=== PATIENT | male | born 1955 | race Caucasian/White ===

== ENCOUNTER 2017-04-29 13:15 | Inpatient (IN) | payer OTHER ==
--- NOTE | 2017-04-29 13:07 | EDPHY ---
H & P HPI/ROS: CHIEF COMPLAINT: AMS, hyperglycemia. HISTORY OF PRESENT ILLNESS: The patient is a 62 year old male with a history of Type 1 diabetes and CVA who presents via EMS for hyperglycemia and AMS. Per his he felt well yesterday but vomited 4 times this morning at 0400. At 0700 he became somnolent and had a decreased level of responsiveness. Around 1300 he developed possible slurred speech. He has baseline left-sided deficits from a previous CVA. noticed slurred speech and there was questionable history that his pre-existing deficits for slightly worse. EMS was notified and measured his blood glucose levels over 600. He has been minimally responsive for EMS and is somnolent but arousable on arrival. He denies fever, chills, chest pain, or other complaints. Prior to arrival he has received 10 units subcutaneous NovoLog and 5 units IV. No fever, chills, chest pain, shortness of breath, palpitations, diarrhea, urinary complaints, headache, lightheadedness. He is oriented to place, family, and hometown. REVIEW OF SYSTEMS: Aside from elements discussed in the HPI, a comprehensive 10-point review of systems was reviewed and is negative. PAST MEDICAL HISTORY: CVA, type 1 diabetes, SOCIAL HISTORY: , at bedside, nonsmoker, no alcohol use. VITAL SIGNS: Reviewed by me GENERAL: Well-developed, well-nourished, ketotic-smelling. Clue small breathing. HEENT: Atraumatic. Eyes: Pupils are 3 mm and reactive. Extraocular movements are intact except for difficulty with right lateral gaze from the right eye. ( states preexisting.) No icterus, no injection. Mouth: Extremely dry mucous membranes. No erythema or lesions. Neck: supple with no adenopathy. LUNGS: Clear to auscultation bilaterally, no wheezes, rhonchi or rales. Kussmaul breathing. CARDIAC: Regular rate and rhythm, no rubs, murmurs or gallops. ABDOMEN: Soft, nontender, nondistended, bowel sounds normal. BACK: No CVA tenderness. EXTREMITIES: No trauma. No edema. Left lower extremity in a PFO splint NEURO: Lethargic but oriented. Decreased responsiveness, slow to respond to questioning. 4/5 motor strength in left upper extremity. 4/5 strength in left lower extremity, left hand pear picker 3/5, all per reported baseline. Cranial nerves 2-12 are intact. No facial droop noted by myself. SKIN: Warm and dry, no rash. PSYCHIATRIC: Normal mentation, no agitation. Portions of this note were transcribed by a medical record administrator. I personally performed a history, physical exam, medical decision making, and confirmed accuracy of information the transcribed note. Source: Family, EMS Exam Limitations: Clinical condition Constitutional: Initial Vital Signs Temperature (C) 36.9 C 04/29/17 13:21 Heart Rate 88 04/29/17 13:21 Respiratory Rate 22 H 04/29/17 13:21 Blood Pressure 109/61 04/29/17 13:21 O2 Sat (%) 98 04/29/17 13:21 O2 Delivery Mode Room Air Allergies/Adverse Reactions: No Allergies [NKDA] Allergy (Verified 04/29/17 15:22) Home Medications: Medication Instructions Recorded ALPRAZolam [Xanax 0.5 MG (*)] 0.5 mg PO HS 04/29/17 Aspirin [Aspirin 81mg (*)] 81 mg PO DAILY 04/29/17 Baclofen [Baclofen 10 mg (*)] 10 mg PO HS 04/29/17 Citalopram [CeleXA] 20 mg PO HS 04/29/17 Gabapentin [Neurontin 100 MG (*)] 100 mg PO HS 04/29/17 Hydrocodone/Acetaminophen [[place] 1 - 2 tab PO Q6H PRN 04/29/17 5/325 (*)] Insulin Pump, Patient Own 1 ea MISC AD 04/29/17 Labetalol HCl [Trandate 200 mg (*)] 200 mg PO BID 04/29/17 Levothyroxine [Synthroid 200 mcg 200 mcg PO DAILY06 04/29/17 (*)] Lisinopril [Zestril 40 mg (*)] 40 mg PO DAILY 04/29/17 Naproxen Sodium [Aleve 220 MG (*)] 220 mg PO DAILY PRN 04/29/17 Pramipexole Di-HCl [Mirapex 0.125 0.125 mg PO HS 04/29/17 mg (*)] Tamsulosin HCl [Flomax 0.4 MG (*)] 0.4 mg PO HS 07/13/17 amLODIPine BESYLATE [Norvasc 10 mg 5 mg PO DAILY 04/29/17 (*)] Medical Decision Making - Diagnostics EKG Interpretation: 12-LEAD EKG: Please see the full report in [facility]. My interpretation: Normal sinus rhythm with first degree AV block. Imaging Results: CT Head: Impression: 1. Encephalomalacia related to old infarct or hemorrhage posterior right thalamus and medial right temporal lobe. 2. No hemorrhage, mass effect, or definite acute peripheral infarct. 3. Moderate nonspecific hypodensities in the white matter of bilateral cerebral hemispheres right side greater than left. Differential diagnosis includes microvascular ischemic disease, post- infectious/post-inflammatory sequela, atypical demyelinating disease, or migraine-related sequela. Small white matter lacunar infarcts or posttraumatic volume loss may also have this appearance. Findings discussed with the medical office clerk with Mary Farfan MD at 14: 38 hour, 04/29/2017. Xray: Chest x-ray was obtained. I viewed the images myself on the PACS system. My interpretation of the images is: No acute disease. The radiology interpretation is: Impression: 1. No acute pulmonary disease. 2. Consider chest two views when the patient's medical condition permits. Dictated By: Brian Salvador Imaging: Discussed imaging studies w/ call center specialist Radiologist, I viewed and interpreted images myself ED Course/Re-evaluation: This 62-year-old male arrives via EMS with hyperglycemia and AMS. I met EMS on arrival and obtained a report from the box sorter. On exam I note left-sided neurological deficits which he and his report are baseline from his previous stroke. An IV was established and labs ordered. EKG ordered. I have ordered Head CT to rule out possible CVA. I think this patient is likely in DKA. ISTAT shows potassium of 6.6. 1gm IV Calcium gluconate administered along with 1L IV saline, and 10 units IV Humulin. 1441: Head CT results conveyed to me negative for acute processes by Dr. Velasquez, radiology. I reviewed the patient's laboratory studies. Potassium is 6.5, glucose >800, carbon dioxide <5. Plan for admission. 50meq IV Sodium Bicarbonate administered. 1450:Notified by nursing staff that the patient's blood pressure has trended downward. BNP is also noted to be elevated at 1600. On re-examination patient is slightly improved, not quite as somnolent as previously. Denies any chest pain or shortness of breath. Denies any palpitations or dizziness. Reports the vomit contains dark material. Rectal exam performed to evaluate for possible GI hemorrhage in the setting of hypotension. Brown stool on the glove. Occult testing was negative. I performed a rectal exam that showed small amount of brown stool. 1452: Consulted with Dr. Corley, hospitalist. Patient will be admitted to the ICU. Repeat i-STAT demonstrates a potassium of 4.8, hemoglobin and hematocrit are stable from previously, glucose is 683. Repeat bicarbonate is 6. Differential Diagnosis: After the history was obtained and physical exam performed, the following differential for the patient's altered mental status was considered included but was not limited to hyperglycemia, DKA,, electrolyte disturbances, intracranial hemorrhage, tumor, drug or alcohol intoxication, stroke, or TIA. Consult/Admit Bed Type: Dr. Corley, ICU Critical Care Time: Critical care time spent by me, Dr. Farfan, exclusively with this patient was 40 minutes, exclusive of PA time and exclusive of procedures. The organ system at risk was neurologic, cardiovascular, endocrine and I gave IVF, calcium, insulin, bicarbonate, to prevent worsening of the patients condition. Critical care time included obtaining history, performing a physical exam, bedside monitoring of interventions, collecting and interpreting tests and discussion with consultants but not including time spent performing procedures. - Data Points Laboratory Results: Laboratory Results 04/29/17 13:48 04/29/17 13:48 Medications Given: Discontinued Medications Calcium Gluconate (Calcium Gluconate) 1 gm IVP EDNOW ONE Stop: 04/29/17 13:40 Last Admin: 04/29/17 14:10 Dose: 1 gm Sodium Chloride (Ns) 1,000 mls @ 0 mls/hr IV ONCE ONE; Wide Open PRN Reason: Protocol Stop: 04/29/17 13:30 Last Admin: 04/29/17 14:00 Dose: 1,000 mls Insulin Human Regular 100 unit / Miscellaneous Medication 1 ea/ Sodium Chloride 101 mls @ 0 mls/hr IV EDNOW ONE; Titrate PRN Reason: Protocol Stop: 04/29/17 14:42 Last Admin: 04/29/17 15:22 Dose: 101 mls Sodium Bicarbonate 50 meq/ (Sodium Chloride) 1,050 mls @ 100 mls/hr IV CONT CARLOS Stop: 10/26/17 15:29 Last Admin: 04/29/17 16:51 Dose: 1,050 mls Sodium Chloride (Ns) 1,000 mls @ 0 mls/hr IV ONCE ONE PRN Reason: Wide Open Stop: 04/29/17 16:48 Last Admin: 04/29/17 16:51 Dose: 1,000 mls Ceftriaxone Sodium 2 gm/ (Dextrose) 50 mls @ 100 mls/hr IV DAILY CARLOS PRN Reason: Protocol Stop: 05/29/17 17:29 Last Admin: 04/30/17 10:41 Dose: 50 mls Vancomycin HCl 1.5 gm/ (Dextrose) 250 mls @ 166.67 mls/hr IV Q24H CARLOS PRN Reason: Protocol Stop: 05/29/17 17:29 Last Admin: 04/29/17 18:28 Dose: 250 mls Insulin Human Regular 100 unit (/ Sodium Chloride) 101 mls @ 0 mls/hr IV AD CARLOS ; Per Protocol PRN Reason: Protocol Stop: 10/26/17 17:50 Last Admin: 04/29/17 22:30 Dose: 101 mls Sodium Bicarbonate 150 meq/ (Sterile Water) 1,150 mls @ 100 mls/hr IV CONT CARLOS Stop: 10/26/17 18:14 Last Admin: 04/29/17 18:26 Dose: 1,150 mls Potassium Chloride (Potassium Cl 10 Meq (Premix)) 100 mls @ 100 mls/hr IV Q1H CARLOS Stop: 04/30/17 03:29 Last Admin: 04/30/17 02:32 Dose: 100 mls Potassium Chloride (Potassium Cl 10 Meq (Premix)) 100 mls @ 100 mls/hr IV ONCE ONE Stop: 04/30/17 04:59 Last Admin: 04/30/17 04:53 Dose: 100 mls Potassium Chloride (Potassium Cl 10 Meq (Premix)) 100 mls @ 100 mls/hr IV ONCE ONE Stop: 04/30/17 10:44 Last Admin: 04/30/17 10:41 Dose: 100 mls Calcium Gluconate (Calcium Gluconate 1 Gm (Premix)) 50 mls @ 100 mls/hr IV ONCE ONE Stop: 04/30/17 12:57 Last Admin: 04/30/17 13:02 Dose: 50 mls Magnesium Sulfate/Dextrose (Magnesium Sulf 1 Gm (Premix)) 100 mls @ 100 mls/hr IV ONCE ONE Stop: 04/30/17 16:20 Last Admin: 04/30/17 16:19 Dose: 100 mls Potassium Chloride (Potassium Cl 10 Meq (Premix)) 50 mls @ 100 mls/hr IV Q30M CARLOS Stop: 04/30/17 16:51 Last Admin: 04/30/17 17:24 Dose: 50 mls Insulin Human Regular (Humulin R) 10 unit IVP EDNOW ONE Stop: 04/29/17 13:41 Last Admin: 04/29/17 14:10 Dose: 10 units Insulin Human Regular (Humulin R) 2 - 12 unit IVP PRN PRN; Protocol PRN Reason: Hyperglycemia/DKA protocol Stop: 10/26/17 17:50 Last Admin: 04/29/17 23:00 Dose: 12 unit Multi-Ingredient Gel (Oral Balance) 0 darryl PO PRN PRN PRN Reason: Dry Mouth Stop: 10/26/17 20:22 Last Admin: 04/29/17 20:53 Dose: 1 darryl Sodium Bicarbonate (Sodium Bicarbonate) 50 meq IVP EDNOW ONE Stop: 04/29/17 14:43 Last Admin: 04/29/17 15:22 Dose: 50 meq Departure - Departure Disposition: [facility] Acute Clinical Impression: Diabetic ketoacidosis Qualifiers: Diabetes mellitus type: type 1 Diabetes mellitus complication detail: without coma Qualified Code(s): E10.10 - Type 1 diabetes mellitus with ketoacidosis without coma Altered mental status Qualifiers: Altered mental status type: somnolence Qualified Code(s): R40.0 - Somnolence Hypotension Qualifiers: Hypotension type: unspecified hypotension type Qualified Code(s): I95.9 - Hypotension, unspecified Condition: Serious Report Scribed for: Mary Farfan Report Scribed by: Akash Cooney Date of Report: 04/29/17 Time of Report: 13:07
[2017-04-29] MEDS ORDERED: NS 1,000 ML IV ONE ×2 (13:29→16:47)
[2017-04-29] MEDS ORDERED: CALCIUM GLUC 10% 1 GM/10 ML VIAL IVP ONE (13:39)
[2017-04-29] MEDS ORDERED: INSULIN REGULAR HUMAN 100 UNIT/ML IVP ONE (13:40)
[2017-04-29 13:59] LABS: % IMMATURE GRANULYOCYTES 0.5 % (0.0-1.1); ABSOLUTE IMMATURE GRANULOCYTES 0.09 10^3/uL (0.00-0.10); ADD DIFF? NO; ADD MORPH? NO; ADD SCAN? NO; ATYPICAL LYMPHOCYTE FLAG 0 (0-99); FRAGMENT RBC FLAG 0 (0-99); HEMATOCRIT 38.5 % (40.0-51.0); HEMOGLOBIN 12.3 g/dL (13.7-17.5); LEFT SHIFT FLG 10 (0-99); LIPEMIA HEMOLYSIS FLAG 80 (0-99); MEAN CELL HEMOGLOBIN 29.1 pg (27.9-34.1); MEAN CELL HEMOGLOBIN CONCENTR. 31.9 g/dL (32.4-36.7); MEAN PLATELET VOLUME 11.6 fL (8.7-11.7); PLATELET CLUMPS FLAG 0 (0-99); PLATELET COUNT 272 10^3/uL (150-400); RED BLOOD CELL COUNT 4.23 10^6/uL (4.40-6.38); RED CELL DISTRIBUTION WIDTH 12.6 % (11.5-15.2)
[2017-04-29 14:08] LABS: CALCIUM 7.9 mg/dL (8.5-10.4); CHLORIDE 96 mEq/L (97-110); GLOMERULAR FILTRATION RATE 34; MAGNESIUM 2.1 mg/dL (1.6-2.3); SODIUM 130 mEq/L (134-144)
[2017-04-29 14:35] LABS: CARBON DIOXIDE < 5 mEq/l (22-31); GLUCOSE 804 mg/dL (70-100)
[2017-04-29 14:37] LABS: POTASSIUM 6.5 mEq/L (3.5-5.2)
[2017-04-29 14:38] LABS: TROPONIN I < 0.012 ng/mL (0-0.034)
[2017-04-29] MEDS ORDERED: INSULIN REGULAR HUMAN 100 UNIT, COSIGN. REQUIRED 1 EA in NS 100 ML IV ONE (14:41)
[2017-04-29] MEDS ORDERED: SODIUM BICARBONATE 50 MEQ/50 ML SYR IVP ONE (14:42)
--- NOTE | 2017-04-29 14:48 | CPEKG ---
Heart Rate: 87 RR Interval: 690 P-R Interval: 224 QRSD Interval: 106 QT Interval: 392 QTC Interval: 472 P [place]: 45 QRS [place]: 32 T Wave [place]: 17 EKG Severity - ABNORMAL ECG - EKG Impression: SINUS RHYTHM EKG Impression: FIRST DEGREE AV BLOCK EKG Impression: Agree with above Electronically Signed By: Waqar Da Silva 30-Apr-2017 09:54:52
[2017-04-29] MEDS ORDERED: ACETAMINOPHEN 325 MG TAB PO PRN (15:22)
[2017-04-29] MEDS ORDERED: ONDANSETRON DISINTEGRATING 4 MG TAB PO PRN (15:22)
[2017-04-29] MEDS ORDERED: ALTEPLASE 2 MG VIAL IVP PRN (15:25)
[2017-04-29] MEDS ORDERED: SODIUM BICARBONATE 50 MEQ in 1/2 NS 1,000 ML IV SCH (15:30)
[2017-04-29 16:00] LABS: CALCIUM 8.1 mg/dL (8.5-10.4); CHLORIDE 97 mEq/L (97-110); CREATININE 2.3 mg/dL (0.7-1.3); GLOMERULAR FILTRATION RATE 29; SODIUM 133 mEq/L (134-144)
[2017-04-29 16:03] LABS: CARBON DIOXIDE < 5 mEq/l (22-31)
[2017-04-29 16:27] LABS: GLUCOSE 718 mg/dL (70-100)
--- NOTE | 2017-04-29 16:40 | CPEKG ---
Heart Rate: 82 RR Interval: 732 P-R Interval: 216 QRSD Interval: 100 QT Interval: 428 QTC Interval: 500 P [place]: 21 QRS [place]: 31 T Wave [place]: 13 EKG Severity - BORDERLINE ECG - EKG Impression: SINUS RHYTHM EKG Impression: BORDERLINE PROLONGED QT INTERVAL EKG Impression: POOR R WAVE PROGRESSION. CONSIDER OLD ANTEROSEPTAL ME EKG Impression: NO SIGNIFICANT CHANGE FROM APRIL 29, 2017 Electronically Signed By: Waqar Da Silva 30-Apr-2017 06:57:29
--- NOTE | 2017-04-29 16:58 | PDGENHP ---
History and Physical - Chief Complaint Acute vomiting - History of Present Illness primary care provider: In [place] HPI: 62-year-old male presents with acute vomiting characterized as projectile , nonbloody emesis occurring at 5:00 a.m. on the day of presentation with associated somnolence, disorientation, dysarthria and visible tachypnea. The patient is were traveling [place]country on a train from [facility] to [place] and on the evening prior to this presentation the patient's noticed that he was experiencing polyuria and also had what sounded like a raspy voice. Earlier in the week the patient's insulin pump seemed to be malfunctioning and he was experiencing hyperglycemia with glucose escalating as high as 600. his had attempted to bolus using the pump is unclear whether this was successful. Patient has also been experiencing some constipation patient which was alleviated by wheat chex and then he experienced diarrhea which was alleviated by Imodium. His reports that he had otherwise not been complaining of any chest pain, fevers, cough, dysuria, abdominal pain. She reports that his overall appearance is very similar to that of DKA which she experienced 10 years ago. History Information - Allergies/Home Medication List Allergies/Adverse Reactions: No Allergies [NKDA] Allergy (Verified 04/29/17 15:22) Home Medications: ALPRAZolam [Xanax 0.5 MG (*)] 0.5 mg PO HS 04/29/17 [Last Taken 04/28/17] Aspirin [Aspirin 81mg (*)] 81 mg PO DAILY 04/29/17 [Last Taken 04/28/17] Baclofen [Baclofen 10 mg (*)] 10 mg PO HS 04/29/17 [Last Taken 04/28/17] Citalopram [CeleXA] 20 mg PO HS 04/29/17 [Last Taken 04/28/17] Gabapentin [Neurontin 100 MG (*)] 100 mg PO HS 04/29/17 [Last Taken 04/28/17] Hydrocodone/Acetaminophen [[place] 5/325 (*)] 1 - 2 tab PO Q6H PRN 04/29/17 [Last Taken Unknown] Insulin Pump, Patient Own 1 ea MISC AD 04/29/17 [Last Taken Unknown] Labetalol HCl [Trandate 200 mg (*)] 200 mg PO BID 04/29/17 [Last Taken 04/28/17] Levothyroxine [Synthroid 200 mcg (*)] 200 mcg PO DAILY06 04/29/17 [Last Taken ] Lisinopril [Zestril 40 mg (*)] 40 mg PO DAILY 04/29/17 [Last Taken 04/28/17] Naproxen Sodium [Aleve 220 MG (*)] 220 mg PO DAILY PRN 04/29/17 [Last Taken Unknown] Pramipexole Di-HCl [Mirapex 0.125 mg (*)] 0.125 mg PO HS 04/29/17 [Last Taken ] Tamsulosin HCl [Flomax 0.4 MG (*)] 0.4 mg PO HS 04/29/17 [Last Taken 04/28/17] amLODIPine BESYLATE [Norvasc 10 mg (*)] 5 mg PO DAILY 04/29/17 [Last Taken 04/28] I have personally reviewed and updated: family history, medical history, social history, surgical history - Past Medical History 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, occurred in 2013), diabetes type 2 ( Insulin-dependent), hypertension - Surgical History Reports: cholecystectomy Additional surgical history: 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 - Family History Additional family history: recent sick family contacts, no first-degree relatives with premature coronary artery disease - Social History Smoking Status: Former smoker Alcohol Use: None Drug Use: None Additional social history: patient and his reside in [place] Review of Systems ROS: 10pt was reviewed & negative except for what was stated in HPI & below Respiratory: Reports: other ( tachypnea) Gastrointestinal: Reports: vomitting Genitourinary: Reports: other ( polyuria) Neurological: Reports: other ( somnolence) Physical Exam Temp Pulse Resp BP Pulse Ox 36.9 C 82 16 87/59 L 99 04/29/17 13:21 04/29/17 16:03 04/29/17 16:03 04/29/17 16:03 04/29/17 16:03 Constitutional: chronically ill appearing, obese, uncomfortable, other ( mild distress) Eyes: PERRL, anicteric sclera, EOMI Ears, Nose, Mouth, Throat: other ( dry mucous membranes) Cardiovascular: edema ( trace left lower extremity edema), No systolic murmur, No irregularly irregular, No tachycardia Respiratory: respiratory distress ( visible tachypnea), other ( poor expiratory air movement bilaterally) Gastrointestinal: other ( obese and mildly distended abdomen), No normoactive bowel sounds ( hypoactive bowel sounds), No tenderness Genitourinary: no bladder fullness, no bladder tenderness Skin: other ( large scar over his abdomen without any surrounding erythema, well -healed) Neurologic: other ( alert awake oriented times 0, patient able to follow some 1 step commands, media/instructional designer strength in the bilateral hands is 5/5 he has some motion is left lower extremity but does appear to be weaker than his right lower extremity) Psychiatric: not anxious, encephalopathic, other ( somnolent but arousable to verbal stimuli), No agitated Lab Data & Imaging Review 04/29/17 13:48 04/29/17 Unknown WBC 16.70 10^3/uL (3.80-9.50) H 04/29/17 13:48 RBC 4.23 10^6/uL (4.40-6.38) L 04/29/17 13:48 Hgb 12.3 g/dL (13.7-17.5) L 04/29/17 13:48 POC Hgb 12.9 gm/dL (13.7-17.5) L 04/29/17 14:51 Hct 38.5 % (40.0-51.0) L 04/29/17 13:48 POC Hct 38 % (40-51) L 04/29/17 14:51 MCV 91.0 fL (81.5-99.8) 04/29/17 13:48 MCH 29.1 pg (27.9-34.1) 04/29/17 13:48 MCHC 31.9 g/dL (32.4-36.7) L 04/29/17 13:48 RDW 12.6 % (11.5-15.2) 04/29/17 13:48 Plt Count 272 10^3/uL (150-400) 04/29/17 13:48 MPV 11.6 fL (8.7-11.7) 04/29/17 13:48 Neut % (Auto) 91.3 % (39.3-74.2) H 04/29/17 13:48 Lymph % (Auto) 5.1 % (15.0-45.0) L 04/29/17 13:48 [place] % (Auto) 2.8 % (4.5-13.0) L 04/29/17 13:48 Eos % (Auto) 0.0 % (0.6-7.6) L 04/29/17 13:48 Baso % (Auto) 0.3 % (0.3-1.7) 04/29/17 13:48 Nucleat RBC Rel Count 0.0 % (0.0-0.2) 04/29/17 13:48 Absolute Neuts (auto) 15.25 10^3/uL (1.70-6.50) H 04/29/17 13:48 Absolute Lymphs (auto) 0.85 10^3/uL (1.00-3.00) L 04/29/17 13:48 Absolute Monos (auto) 0.46 10^3/uL (0.30-0.80) 04/29/17 13:48 Absolute Eos (auto) 0.00 10^3/uL (0.03-0.40) L 04/29/17 13:48 Absolute Basos (auto) 0.05 10^3/uL (0.02-0.10) 04/29/17 13:48 Absolute Nucleated RBC 0.00 10^3/uL (0-0.01) 04/29/17 13:48 Immature Gran % 0.5 % (0.0-1.1) 04/29/17 13:48 Immature Gran # 0.09 10^3/uL (0.00-0.10) 04/29/17 13:48 POC Sodium 131 mEq/L (134-144) L 04/29/17 14:51 Sodium 133 mEq/L (134-144) L 04/29/17 Unknown POC Potassium 4.8 mEq/L (3.3-5.0) 04/29/17 14:51 Potassium 5.0 mEq/L (3.5-5.2) 04/29/17 Unknown POC Chloride 97 mEq/L (97-110) 04/29/17 14:51 Chloride 97 mEq/L (97-110) 04/29/17 Unknown Carbon Dioxide < 5 mEq/l (22-31) L* 04/29/17 Unknown Anion Gap TNP 04/29/17 Unknown POC BUN 58 mg/dL (7-23) H 04/29/17 14:51 BUN 55 mg/dL (7-23) H 04/29/17 Unknown Creatinine 2.3 mg/dL (0.7-1.3) H 04/29/17 Unknown POC Creatinine 2.3 mg/dL (0.7-1.3) H 04/29/17 14:51 Estimated GFR 29 04/29/17 Unknown Glucose 718 mg/dL (70-100) H* 04/29/17 Unknown POC Glucose 619 mg/dL (70-100) H* 04/29/17 16:21 Calcium 8.1 mg/dL (8.5-10.4) L 04/29/17 Unknown Phosphorus 6.9 mg/dL (2.5-4.5) H 04/29/17 Unknown Magnesium 2.1 mg/dL (1.6-2.3) 04/29/17 13:48 Troponin I < 0.012 ng/mL (0-0.034) 04/29/17 Unknown NT-Pro-B Natriuret Pep 1610 pg/mL (0-125) H 04/29/17 13:48 Beta-Hydroxybutyrate 13.60 mmol/L (0.02-0.27) H 04/29/17 13:48 Visualized and Interpreted Chest x-ray results: Yes Chest X-Ray results: other ( some mild interstitial prominence but no effusions) Visualized and Interpreted EKG results: Yes EKG Interpretation: Positive for: other ( first-degree AV block with some mild QRS widening, less than [address]-depression in lead V6) Assessment & Plan Assessment: 62-year-old male presents with acute diabetic ketoacidosis and resultant acute kidney injury, hyperkalemia, hypotension, acute encephalopathy Plan: 1. Diabetic ketoacidosis. Acute, new problem this provider, further workup is indicated. Patient is high risk for worsening morbidity and/or mortality and is currently critically ill with serum bicarbonate level less than 5, glucose level greater than 800, and dense encephalopathy secondary to acidosis - serial labs to monitor electrolyte correction - current anion gap is incalculable because his serum bicarbonate level is unmeasurable - in addition to insulin drip, give sodium bicarbonate 150 mEq as well as normal saline boluses - unclear precipitant, may have been malfunctioning pump, will cycle his troponin level, check a D-dimer and lower extremity ultrasound as he is at risk for DVT and venous thromboembolism with his lower extremity edema, if positive would check V/Q scan tomorrow and empirically anticoagulate 2. Acute kidney injury. Most likely secondary to hypovolemia in the setting of above, give a balance of normal saline and sodium bicarbonate and monitor urine output, check creatinine level in a.m. 3. Hyperkalemia. Severe, secondary to intracellular acid shift, stabilizing with bicarbonate, continue to monitor on serial labs and monitor on telemetry 4. Hypotension. Acute, new problem this provider, unclear whether this is secondary to an infectious process versus hypovolemia in the setting of above - check serum lactic acid level - get emergent central line access with PICC line - continue to bolus normal saline, pressors if needed - check CVP 5. Diabetes mellitus type 2. Insulin dependent, recommend that once the above is stabilized, we rehab okay his insulin pump and ensure that it is working effectively prior to discharge 6. Acute encephalopathy. Evidenced by global brain dysfunction characterized as somnolence, disorientation, all of which is acute change from his baseline, most likely secondary to the metabolic effects of acidosis, hypotension - head CT does not demonstrate significant dilation of his ventricles - if above is corrected patient's mental status remains poor, will consider MRI - get LP to ensure that patient does not have infected CSF contributing to the cause of his DKA Diet. NPO, ZINC FURNACE CHARGER eval Prophylaxis. High risk patient, heparin subcu Code. Full per patient's , who is MPOA Disposition. Anticipated discharge is uncertain this time, anticipated length stay is greater than 48 hours warranting inpatient admission status for acute DKA with high risk comorbid conditions making him critically ill and high risk of mortality. 50 minutes of critical care time spent at bedside with the patient and his , addressing the issues as outlined above.
[2017-04-29] MEDS ORDERED: VANCOMYCIN 1.5 GM in D5W 250 ML IV SCH (17:30)
[2017-04-29] MEDS ORDERED: INSULIN REGULAR HUMAN 100 UNIT in NS 100 ML IV SCH (17:51)
[2017-04-29] MEDS ORDERED: D50W 25 GM/50 ML SYR IVP PRN (17:51)
[2017-04-29] MEDS ORDERED: SODIUM BICARBONATE 150 MEQ in WATER FOR INJECTION,STERILE 1,000 ML IV SCH (18:15)
[2017-04-29 18:24] LABS: BASE EXCESS -20.3 mEq/L (-2.5-2.5); BICARBONATE 7 mEq/L (22-26); MEASURED OXYGEN SATURATION 97 % (92-95)
[2017-04-29] MEDS ORDERED: CEPACOL LOZENGE PO PRN (18:24)
[2017-04-29 18:25] LABS: PO2 80 mmHg (65-75)
[2017-04-29] MEDS: cefTRIAXone 2 GM in D5W 50 ML IV SCH (18:28)
[2017-04-29 18:29] LABS: PCO2 17 mmHg (34-38); TCO2 8 mEq/L (23-27)
[2017-04-29 18:52] LABS: APTT 25.3 SEC (23.0-38.0); INR 1.26 (0.83-1.16); PROTIME(PATIENT) 15.8 SEC (12.0-15.0)
[2017-04-29 18:56] LABS: ANION GAP 27 mEq/L (8-16); CALCIUM 7.8 mg/dL (8.5-10.4); CARBON DIOXIDE 6 mEq/l (22-31); CHLORIDE 101 mEq/L (97-110); CREATININE 2.3 mg/dL (0.7-1.3); GLOMERULAR FILTRATION RATE 29; POTASSIUM 4.5 mEq/L (3.5-5.2); SODIUM 134 mEq/L (134-144)
[2017-04-29 19:00] LABS: GLUCOSE 549 mg/dL (70-100)
[2017-04-29] MEDS: INSULIN REGULAR HUMAN 100 UNIT/ML IVP PRN ×2 (19:30→23:00)
[2017-04-29] MEDS: GABAPENTIN 100 MG CAP PO SCH (19:50)
[2017-04-29] MEDS: TAMSULOSIN HCL 0.4 MG CAP PO SCH (19:50)
[2017-04-29] MEDS ORDERED: ORAL BALANCE GEL TUBE PO PRN (20:23)
[2017-04-29 21:16] LABS: BASE EXCESS -12.7 mEq/L (-2.5-2.5); BICARBONATE 12 mEq/L (22-26); MEASURED OXYGEN SATURATION 95 % (92-95); PCO2 25 mmHg (34-38); PO2 74 mmHg (65-75); TCO2 13 mEq/L (23-27)
[2017-04-29 21:17] LABS: O2 CONCENTRATIION ROOM AIR % (0-100); P/F RATIO 0 RATIO
[2017-04-29 21:36] LABS: ANION GAP 21 mEq/L (8-16); CALCIUM 7.9 mg/dL (8.5-10.4); CARBON DIOXIDE 12 mEq/l (22-31); CHLORIDE 100 mEq/L (97-110); CREATININE 2.1 mg/dL (0.7-1.3); GLOMERULAR FILTRATION RATE 32; GLUCOSE 395 mg/dL (70-100); POTASSIUM 3.8 mEq/L (3.5-5.2); SODIUM 133 mEq/L (134-144)
[2017-04-30] MEDS: HEPARIN 5,000 UNIT/0.5 ML SYR SC SCH ×4 (00:04→22:22)
[2017-04-30 00:56] LABS: ANION GAP 14 mEq/L (8-16); CALCIUM 7.8 mg/dL (8.5-10.4); CARBON DIOXIDE 17 mEq/l (22-31); CHLORIDE 105 mEq/L (97-110); CREATININE 1.8 mg/dL (0.7-1.3); GLOMERULAR FILTRATION RATE 38; GLUCOSE 245 mg/dL (70-100); POTASSIUM 3.3 mEq/L (3.5-5.2); SODIUM 136 mEq/L (134-144)
[2017-04-30] MEDS ORDERED: D5W NS 1,000 ML IV SCH (01:30)
[2017-04-30] MEDS: POTASSIUM Cl (KCl) 100 ML IV SCH ×2 (01:36→02:32)
[2017-04-30 03:25] LABS: ANION GAP 10 mEq/L (8-16); CALCIUM 7.8 mg/dL (8.5-10.4); CARBON DIOXIDE 21 mEq/l (22-31); CHLORIDE 107 mEq/L (97-110); CREATININE 1.6 mg/dL (0.7-1.3); GLOMERULAR FILTRATION RATE 44; GLUCOSE 150 mg/dL (70-100); POTASSIUM 3.4 mEq/L (3.5-5.2); SODIUM 138 mEq/L (134-144)
[2017-04-30] MEDS ORDERED: POTASSIUM Cl (KCl) 100 ML IV ONE ×2 (04:00→09:45)
[2017-04-30] MEDS ORDERED: METOCLOPRAMIDE 10 MG/2 ML VIAL ONE (05:18)
[2017-04-30] MEDS: ONDANSETRON 4 MG/2 ML VIAL IVP PRN ×2 (05:39→12:15)
[2017-04-30] MEDS ORDERED: LEVOTHYROXINE 200 MCG TAB PO SCH (06:00)
[2017-04-30 06:26] LABS: % IMMATURE GRANULYOCYTES 0.4 % (0.0-1.1); ABSOLUTE IMMATURE GRANULOCYTES 0.07 10^3/uL (0.00-0.10); ADD DIFF? NO; ADD MORPH? NO; ADD SCAN? NO; ATYPICAL LYMPHOCYTE FLAG 0 (0-99); FRAGMENT RBC FLAG 0 (0-99); HEMATOCRIT 33.5 % (40.0-51.0); HEMOGLOBIN 11.6 g/dL (13.7-17.5); LEFT SHIFT FLG 10 (0-99); LIPEMIA HEMOLYSIS FLAG 90 (0-99); MEAN CELL HEMOGLOBIN 28.6 pg (27.9-34.1); MEAN CELL HEMOGLOBIN CONCENTR. 34.6 g/dL (32.4-36.7); MEAN CELL VOLUME 82.7 fL (81.5-99.8); MEAN PLATELET VOLUME 10.4 fL (8.7-11.7); PLATELET CLUMPS FLAG 0 (0-99); PLATELET COUNT 272 10^3/uL (150-400); RED BLOOD CELL COUNT 4.05 10^6/uL (4.40-6.38); RED CELL DISTRIBUTION WIDTH 12.4 % (11.5-15.2)
[2017-04-30 07:02] LABS: ALANINE AMINOTRANSFERASE 28 IU/L (21-72); ALBUMIN 2.9 g/dL (3.5-5.0); ALKALINE PHOSPHATASE 107 IU/L (38-126); ANION GAP 12 mEq/L (8-16); ASPARTATE AMINOTRANSFERASE 15 IU/L (17-59); BILIRUBIN,TOTAL 0.6 mg/dL (0.1-1.4); CALCIUM 7.9 mg/dL (8.5-10.4); CARBON DIOXIDE 20 mEq/l (22-31); CHLORIDE 108 mEq/L (97-110); CREATININE 1.4 mg/dL (0.7-1.3); GLOMERULAR FILTRATION RATE 51; GLUCOSE 78 mg/dL (70-100); POTASSIUM 3.5 mEq/L (3.5-5.2); SODIUM 140 mEq/L (134-144); TOTAL PROTEIN 5.3 g/dL (6.3-8.2)
[2017-04-30 07:13] LABS: TROPONIN I 0.251 ng/mL (0-0.034)
[2017-04-30] MEDS ORDERED: ORAL BALANCE GEL TUBE PO PRN (09:34)
[2017-04-30] MEDS ORDERED: D50W 25 GM/50 ML SYR IVP PRN (10:06)
[2017-04-30] MEDS ORDERED: D10W 250 ML PRN HYPOGLYCEMIA IV (10:30)
[2017-04-30] MEDS: cefTRIAXone 2 GM in D5W 50 ML IV SCH (10:41)
[2017-04-30 11:23] LABS: ALANINE AMINOTRANSFERASE 26 IU/L (21-72); ALBUMIN 3.1 g/dL (3.5-5.0); ALKALINE PHOSPHATASE 118 IU/L (38-126); ANION GAP 17 mEq/L (8-16); ASPARTATE AMINOTRANSFERASE 15 IU/L (17-59); BILIRUBIN,TOTAL 0.9 mg/dL (0.1-1.4); CARBON DIOXIDE 15 mEq/l (22-31); CHLORIDE 108 mEq/L (97-110); CREATININE 1.4 mg/dL (0.7-1.3); GLOMERULAR FILTRATION RATE 51; GLUCOSE 162 mg/dL (70-100); POTASSIUM 3.4 mEq/L (3.5-5.2); SODIUM 140 mEq/L (134-144); TOTAL PROTEIN 5.5 g/dL (6.3-8.2)
[2017-04-30] MEDS ORDERED: PROTOCOL POTASSIUM 1 DOSE MISC PRN (12:02)
[2017-04-30] MEDS ORDERED: PROTOCOL CALCIUM 1 DOSE IV PRN (12:02)
[2017-04-30] MEDS ORDERED: PROTOCOL MAGNESIUM 1 DOSE IV PRN (12:02)
[2017-04-30] MEDS ORDERED: PROTOCOL K PHOSPHATE 1 DOSE IV PRN (12:02)
[2017-04-30 12:10] LABS: COLOR YELLOW; LEUKOCYTE ESTERASE,URINE NEGATIVE (NEGATIVE); NITRITE,URINE NEGATIVE (NEGATIVE)
[2017-04-30 12:17] LABS: MUCUS TRACE /lpf (NONE-1+)
[2017-04-30 12:21] LABS: GRANULAR CASTS 0-1 /lpf (0-1)
[2017-04-30 12:26] LABS: IONIZED CALCIUM 1.07 MMOL/L (1.12-1.30)
[2017-04-30] MEDS: INSULIN LISPRO 100 UNIT/ML SC SCH ×2 (12:26→19:02)
[2017-04-30] MEDS ORDERED: CALCIUM GLUCONATE 50 ML IV ONE (12:28)
[2017-04-30 14:10] LABS: MAGNESIUM 1.8 mg/dL (1.6-2.3)
[2017-04-30] MEDS ORDERED: MAGNESIUM SULF 1 GM/DEXTROSE 100 ML IV ONE (15:21)
[2017-04-30] MEDS: POTASSIUM Cl (KCl) 50 ML IV SCH ×3 (16:16→17:24)
--- NOTE | 2017-04-30 18:26 | HOSPPROG ---
Hospitalist Progress Note Assessment/Plan: # DKA - pt uses insulin pump outpatient - currently traveling by train through [place] AG 24-> normal with am on insulin gtt - transition to lantus and SSI - start DM diet - after discussion patient will remain on lantus/SSI until new pump arranged at home # Acute encephalopathy - resolved with treatment of above - at baseline mental status this am # h/o CVA - no new deficits - oxygen saturations 95% on RA TELE (personally reviewed and interpreted) sinus - cont ASA # HTN - cont home meds when BP rebound - currently SBP 120's off meds # hypothyroid - continuing synthroid # proph - lovenox # diet - dm # dispo - > 2mN as requires ongoing monitoring of BS and titration of insulin therapy I have discussed the case with the RN - we will transition patient to lantus today with potential dc tomorrow Subjective: denies CP Objective: Vital Signs Temp Pulse Resp BP Pulse Ox 36.6 C 96 18 163/76 H 96 04/30/17 16:00 04/30/17 16:00 04/30/17 16:00 04/30/17 16:00 04/30/17 16:00 Laboratory Results 04/30/17 06:15 04/30/17 10:30 04/29/17 04/30/17 05/01/17 05:59 05:59 05:59 Intake Total 5399 977 Output Total 1050 1325 Balance 4349 -348 PT 15.8 SEC (12.0-15.0) H 04/29/17 18:16 INR 1.26 (0.83-1.16) H 04/29/17 18:16 - Physical Exam Constitutional: no apparent distress Eyes: anicteric sclera Ears, Nose, Mouth, Throat: moist mucous membranes Cardiovascular: regular rate and rhythym Respiratory: no respiratory distress Gastrointestinal: normoactive bowel sounds, soft, non-tender abdomen Genitourinary: no bladder fullness Skin: warm Musculoskeletal: No asymmetric calves Neurologic: AAOx3 Psychiatric: interacting appropriately Lymph, Heme, Immunologic: no cervical LAD ICD10 Worksheet Patient Problems: Problems Problem Status Onset Altered mental status Acute Diabetic ketoacidosis Acute Hypotension Acute
--- NOTE | 2017-04-30 19:15 | GCON ---
[f rep st] CONSULTATION [facility] CONSULTATION REASON FOR ADMISSION: DKA, altered mental status, acute renal failure. HISTORY OF PRESENT ILLNESS: The patient is a 62-year-old white male with extensive past medical his tory including diabetes, a stroke in 2013, hypertension. He is on a long train trip from [facility] to [place], and he began having altered mental status as well as polyuria. He had problems with his insulin pump at that time, which was malfunctioning. This was felt to be secondary to the tubing and not the pump itself. His blood sugar escalated to approximately 600. His attempted to clear the pump without much improvement, and he was brought to the emergency room. He was subse quently admitted with a diagnosis of DKA. In discussion with the patient, he states he feels marked ly improved and his mental status has returned to normal. He denies any chest pain, pleuritic-type chest pain, or angina equivalent. No cough or production of sputum. There is no dysuria. His bloo d sugars are more controlled. PAST MEDICAL HISTORY: Significant for diabetes, stroke, hypertension. PAST SURGICAL HISTORY: He has had a cholecystectomy. ALLERGIES: No known allergies to medications. SOCIAL HISTORY: Previous heavy smoker, none for many years. No significant alcohol use. Patient i s visiting from [place]. He has excellent family support. MEDICATIONS: At home include Xanax, aspirin, baclofen, Celexa, Neurontin, [place], insulin pump, labe talol, Synthroid, Zestril, Aleve, Mirapex, Flomax, and Norvasc. PHYSICAL EXAM: VITAL SIGNS: Blood pressure is 122/62, pulse 95, respirations 16, temperature is 36 .8, oxygen saturation 98% on 2 L. GENERAL: He is a mildly-overweight but very pleasant 62-year-old white male, who is resting comfortably, in no acute distress. HEENT: Eyes: GILMER, EOMI. Throat s hows no erythema or tonsillar hypertrophy. NECK: Supple. There is no cervical adenopathy. HEART: Regular rate and rhythm with a 2/6 systolic murmur at the left sternal border without radiation. LUNGS: Clear to auscultation without wheeze or rhonchi. ABDOMEN: Soft, nontender. Bowel sounds a re present in all 4 quadrants. EXTREMITIES: No clubbing, cyanosis, or edema. LABORATORIES: White count 17.7, hemoglobin 11, hematocrit 33, platelet count is 272. INR is 1.26. Initial arterial blood gas: PH 7.31, pCO2 of 25, PO2 is 74, bicarb 13, oxygen saturation 95%. Sod ium 138, potassium 3.4, chloride 107, CO2 is 21, BUN 56, creatinine 1.6, glucose is 150. Troponins are mildly elevated. BNP is mildly elevated. Beta hydroxybutyrate is 13.6. Initial anion gap was 21. This is down to 10. IMPRESSION: 1. Diabetes. 2. Diabetic ketoacidosis, currently resolved. 3. History of a stroke. 4. Hypertension. RECOMMENDATIONS: 1. Aggressive blood sugar control with DKA protocol. 2. Adequate blood pressure control. 3. Would troubleshoot the patient's insulin pump. 4. Out of bed to chair. 5. PT and OT. 6. Adequate nutrition. 7. At this stage, patient being transferred out of the intensive care unit soon. /[id number]/MODL
[2017-04-30 19:49] LABS: POTASSIUM 4.3 mEq/L (3.5-5.2)
[2017-04-30] MEDS: LABETALOL HCL 100 MG TAB PO SCH (20:42)
[2017-04-30] MEDS: GABAPENTIN 100 MG CAP PO SCH (22:21)
[2017-04-30] MEDS: TAMSULOSIN HCL 0.4 MG CAP PO SCH (22:22)
[2017-04-30] MEDS ORDERED: INSULIN LISPRO 100 UNIT/ML SC ONE (23:45)
[2017-05-01] MEDS: HEPARIN 5,000 UNIT/0.5 ML SYR SC SCH (05:16)
--- NOTE | 2017-05-01 05:22 | CPEKG ---
Heart Rate: 86 RR Interval: 698 P-R Interval: 176 QRSD Interval: 96 QT Interval: 396 QTC Interval: 474 P [place]: 20 QRS [place]: 4 T Wave [place]: 113 EKG Severity - BORDERLINE ECG - EKG Impression: SINUS RHYTHM EKG Impression: BORDERLINE T ABNORMALITIES, DIFFUSE LEADS EKG Impression: NO SIGNIFICANT CHANGE FROM APRIL 29, 2017 Electronically Signed By: Waqar Da Silva 01-May-2017 08:33:57
[2017-05-01 05:34] LABS: IONIZED CALCIUM 1.13 MMOL/L (1.12-1.30)
[2017-05-01 05:47] LABS: HEMATOCRIT 33.2 % (40.0-51.0); HEMOGLOBIN 11.5 g/dL (13.7-17.5); MEAN CELL HEMOGLOBIN CONCENTR. 34.6 g/dL (32.4-36.7); MEAN CELL VOLUME 83.8 fL (81.5-99.8); RED BLOOD CELL COUNT 3.96 10^6/uL (4.40-6.38)
[2017-05-01 05:54] LABS: ANION GAP 9 mEq/L (8-16); CALCIUM 8.5 mg/dL (8.5-10.4); CARBON DIOXIDE 24 mEq/l (22-31); CHLORIDE 109 mEq/L (97-110); GLOMERULAR FILTRATION RATE > 60; GLUCOSE 203 mg/dL (70-100); POTASSIUM 4.1 mEq/L (3.5-5.2); SODIUM 142 mEq/L (134-144)
[2017-05-01] MEDS ORDERED: LEVOTHYROXINE 100 MCG TAB PO SCH (06:00)
[2017-05-01 06:04] LABS: TROPONIN I 0.105 ng/mL (0-0.034)
[2017-05-01] MEDS ORDERED: LISINOPRIL 40 MG TAB PO SCH (09:00)
[2017-05-01] MEDS ORDERED: ASPIRIN 81 MG CHEWABLE TAB PO SCH (09:00)
[2017-05-01] MEDS: INSULIN LISPRO 100 UNIT/ML SC SCH ×2 (09:21→13:07)
[2017-05-01] MEDS: LABETALOL HCL 100 MG TAB PO SCH (09:23)
[2017-05-01] MEDS ORDERED: INSULIN GLARGINE 100 UNITS/ML SYRINGE SC SCH ×2 (10:51)
[2017-05-01 12:40] VITALS: BP 127/93; PULSE 72; RESP 16; TEMP 98.5; O2SAT 93
--- NOTE | 2017-05-02 11:40 | GDS ---
[f rep st] DISCHARGE SUMMARY DISCHARGE DIAGNOSES: Include: 1. Diabetic ketoacidosis. 2. History of cerebrovascular accident. 3. Hypertension. 4. Hypothyroidism. 5. Acute encephalopathy. HISTORY OF PRESENT ILLNESS: This is a 62-year-old male who presents with acute DKA and mental statu s changes. For details of the patient, please see the history and physical dated 04/29/2017. CONSULTATIVE SERVICES: Included Pulmonary Critical Care. PROCEDURES: On 04/29/2017, patient had a CT of the head that showed no acute strokes or abnormaliti es. On 04/29/2017, patient had a PA and lateral chest x-ray that showed no acute infiltrates. On 0 04/29/2017, patient had a PICC line placed. HOSPITAL COURSE BY ISSUE: 1. Acute DKA. Patient typically treats his insulin-dependent diabetes by pump. He believed he was having pump malfunction, developed subjective fevers, chills, illness and ultimately hyperglycemia. Was brought in while traveling through [place] for treatment. Was placed on IV insulin, transiti oned off on to Lantus and lispro, which he will continue for the duration of his travel and readdres s a new pump when he returns home. We resumed doses of Lantus and lispro similar to what he was usi ng prior to initiation of his pump. 2. Acute encephalopathy. The patient was nearly comatose at presentation. Had extensive workup fo r reversible causes, but when his DKA was appropriately treated, he returned to his baseline mental status. We have no concerns at the time of his disposition for an acute neurologic episode. 3. History of CVA. Patient has remnant deficits, but remained stable during this hospital stay. Rao e was continued on his appropriate medications and will follow with his outpatient PCP upon returnin g home. MEDICATIONS AT TIME OF DISPOSITION: Please reference the med rec. We made no changes to his chroni c meds. Did discontinue his pump and initiate glargine as well as lispro for diabetic control post disposition. PENDING STUDIES: At the time of this disposition include blood cultures drawn 04/29/2017, which are preliminary no growth to date. I spent greater than 30 minutes in the planning and coordination of this discharge. /[id number]/MODL
== END 2017-05-01 14:39 | disposition home or self-care (01) | DRG 637 ==
LOC: F2N 16:15 → F3E 04-30 18:36
PROVIDERS: ADMIT Internal Medicine; ATTEND Internal Medicine
PROC: 02HV33Z Insertion of Infusion Device into Superior Vena Cava, Percutaneous Approach (ICD-10-PCS; principal; 2017-04-29)
DX: E10.10 Type 1 diabetes mellitus with ketoacidosis without coma (principal); G93.49 Other encephalopathy; I69.354 Hemiplegia and hemiparesis following cerebral infarction affecting left non-dominant side; I95.9 Hypotension, unspecified; I10 Essential (primary) hypertension; E03.9 Hypothyroidism, unspecified; Z79.4 Long term (current) use of insulin; Z96.41 Presence of insulin pump (external) (internal)
CPT/HCPCS: 82947-QW; 92610-GN; 96374; 97112-GP; 97116-GP; 97162-GP; 97166-GO; C1751; J0610; J0696; J1815; J2405; J2765; J3370; J3475